=== PATIENT | female | born 1950 | race Caucasian/White ===

== ENCOUNTER 2017-11-15 22:39 | Emergency (ER) | payer MEDICARE ==
[~2017-11-15] VITALS: Ht 157.5 cm; Wt 83.9 kg
[2017-11-15 22:59] VITALS: BP 138/74
[2017-11-15] MEDS ORDERED: ACET-704 PO (23:24)
[2017-11-15] MEDS ORDERED: OFLO5DRO OS (23:24)
--- NOTE | 2017-11-15 23:24 | PHYS DOC ---
Past Medical History Past Medical History: Ectopic Past Surgical History: , Tubal ligation Alcohol Use: None Drug Use: None Adult General Chief Complaint Chief Complaint: EYE PROBLEMS HPI HPI Patient is a 67 year old female presents to the emergency department stating that she was at one of the poles here in the [facility] area when she was hit with a beach ball. Patient states she's been having left eye pain and discomfort since the incident. She denies any change in her vision. She denies any use of contact lenses. She denies any bloody drainage from the eyes she does state that she has clear drainage. Review of Systems Review of Systems Constitutional: Denies fever or chills [] Eyes: Denies change in visual acuity, redness, C/o left eye pain and discomfort HENT: Denies nasal congestion or sore throat [] Respiratory: Denies cough or shortness of breath [] Cardiovascular: No additional information not addressed in HPI [] GI: Denies abdominal pain, nausea, vomiting, bloody stools or diarrhea [] : Denies dysuria or hematuria [] Musculoskeletal: Denies back pain or joint pain [] Integument: Denies rash or skin lesions [] Neurologic: Denies headache, focal weakness or sensory changes [] Endocrine: Denies polyuria or polydipsia [] All other systems were reviewed and found to be within normal limits, except as documented in this note. Current Medications Current Medications Current Medications Medications (Trade) Dose Ordered Sig/Jacques Start Time Stop Time Status Last Admin Dose Admin Fluorescein Sodium (Ful-Alida) 1 strip 1X ONCE 11/15/17 23:30 11/15/17 23:31 11/15/17 23:14 1 STRIP Tetracaine HCl (Tetracaine) 1 drop 1X ONCE 11/15/17 23:30 11/15/17 23:31 11/15/17 23:14 1 DROP Allergies Allergies Allergies Coded Allergies Type Severity Reaction Last Updated Verified No Known Drug Allergies 11/15/17 No Physical Exam Physical Exam Constitutional: Well developed, well nourished, no acute distress, non-toxic appearance. [] HENT: Normocephalic, atraumatic, bilateral external ears normal, oropharynx moist, no oral exudates, nose normal. [] Eyes: PERRLA, EOMI, conjunctiva normal, clear drainage is noted. No foreign body noted in the eye. Neck: Normal range of motion, no tenderness, supple, no stridor. [] Cardiovascular:Heart rate regular rhythm, no murmur [] Lungs & Thorax: Bilateral breath sounds clear to auscultation [] Skin: Warm, dry, no erythema, no rash. [] Extremities: No tenderness, no cyanosis, no clubbing, ROM intact, no edema. [] Neurologic: Alert and oriented X 3, normal motor function, normal sensory function, no focal deficits noted. [] Psychologic: Affect normal, judgement normal, mood normal. [] Current Patient Data Vital Signs Vital Signs Date Time Temp Pulse Resp B/P (MAP) Pulse Ox O2 Delivery O2 Flow Rate FiO2 11/15/17 22:59 98.4 83 20 95 Room Air 98.4 EKG EKG [] Radiology/Procedures Radiology/Procedures [] Course & Med Decision Making Course & Med Decision Making Pertinent Labs and Imaging studies reviewed. (See chart for details) Tetracaine was placed into the left eye Q-tip was used to chon the eyelid with no foreign body noted. Fluorescein was used to identify corneal abrasion at the 3:00 to the 4:00 as well as at the 5:00 area. Patient will be placed on ofloxacin she'll be provided with Tylenol No. 3 for pain and discomfort. She was instructed to not use any further Tylenol while on the Tylenol 3. She is instructed this medication will cause drowsiness and may cause constipation. She was instructed not to do anything that requires her to be alert and oriented. Did recommend ibuprofen for pain and discomfort as well. Patient be discharged home in stable condition. She was recommended to follow-up with ophthalmology in the next 24 hours. However this is a holiday weekend I suspect that she will need to follow-up on Saturday. She was recommended to return back to the emergency department for any signs and symptoms of become worse. [] Dragon Disclaimer Dragon Disclaimer This electronic medical record was generated, in whole or in part, using a voice recognition dictation system. Departure Departure Impression: Primary Impression: Corneal abrasion, left Disposition: HOME, SELF-CARE Condition: STABLE Referrals: DARIUSZ OCONNOR MD Patient Instructions: Eye - Corneal Abrasion, [id number] Additional Instructions: Activity as tolerated. Avoid bright lights as this may irritate the left eye Medications as prescribed. Tylenol 3 may cause drowsiness do not take any be alert and oriented. This medication may also cause constipation picture that she drink plenty of fluids and high fiber diet. Ibuprofen as needed for pain and discomfort. Follow-up with an deck and hull assembler in the next 24 hours. However you may not be able to follow-up until Saturday. Return back to emergency department for signs and symptoms of become worse. Scripts Acetaminophen With Codeine (TYLENOL WITH CODEINE #3 TABLET) 1 Each Tablet 1 TAB PO PRN Q6HRS Y for PAIN, #15 TAB Prov: GENESIS CHAPMAN APRN 11/15/17 Ofloxacin (OCUFLOX) 5 Ml Drops 1-2 DROP OS BID, #1 BOTTLE 1-2 drops in the left eye twice a day for 5-7 days Prov: GENESIS CHAPMAN APRN 11/15/17 Problem Qualifiers Primary Impression: Corneal abrasion, left Encounter type: initial encounter Qualified Codes: S05.02XA - Injury of conjunctiva and corneal abrasion without foreign body, left eye, initial encounter GENESIS CHAPMAN APRN Nov 15, 2017 23:24
[2017-11-15] MEDS ORDERED: FLUORESCEIN OPHTH TEST STRIP. OS ONE (23:30)
[2017-11-15] MEDS ORDERED: TETRACAINE 0.5% OPHTH SOLUTION 4ML BOTTLE. OS ONE (23:30)
[2017-11-15] MEDS ORDERED: DIPHTH,PERTUSS(ACELL),TET TOX 0.5 ML DISP.SYRIN. VAX IM ONE (23:45)
== END 2017-11-15 23:35 | disposition home or self-care (01) ==
LOC: ER 22:39
DX: S05.02XA Injury of conjunctiva and corneal abrasion without foreign body, left eye, initial encounter (principal); X58.XXXA Exposure to other specified factors, initial encounter; Y93.89 Activity, other specified; Y99.8 Other external cause status; Y92.89 Other specified places as the place of occurrence of the external cause
CPT/HCPCS: 90471; 90715; 99283-25